=== PATIENT | female | born 1970 | race African-American/Black ===

== ENCOUNTER 2018-09-20 12:53 | Inpatient (IN) | payer OTHER ==
[~2018-09-20] VITALS: Ht 167.6 cm; Wt 59.0 kg
[2018-09-20 12:59] VITALS: BP 161/90
[2018-09-20] MEDS ORDERED: IBUPROFEN 200200 M1 PO (13:03)
[2018-09-20 13:45] LABS: CALCIUM 8.6 mg/dL (8.5-10.1); CREATININE 0.9 mg/dL (0.6-1.3); POTASSIUM 3.2 mmol/L (3.5-5.1)
[2018-09-20 13:49] LABS: ALBUMIN 3.8 g/dL (3.4-5.0); TOTAL BILIRUBIN 0.4 mg/dL (<0.1-1.0); TOTAL PROTEIN 7.6 g/dL (6.4-8.2)
[2018-09-20 13:57] LABS: MCH 13.5 pg (26.0-34.0); MCHC 25.7 g/dL (28.0-37.0); MCV 52.4 fL (80.0-100.0); MPV 9.1 fl. (7.2-11.1); NUCLEATED RBCS 0 /100WBC; PLATELET COUNT* 250 thou/uL (150-400); RBC 3.33 mil/uL (4.20-5.00); WBC 13.1 thou/uL (4.0-11.0)
[2018-09-20 14:09] LABS: HEMOGLOBIN 4.5 gm/dL (12.0-15.0)
[2018-09-20 14:10] LABS: HEMATOCRIT 17.4 % (37.0-47.0)
[2018-09-20 14:30] LABS: APTT 25.7 Seconds (25.0-31.3); INR 1.1; PROTIME 10.9 Seconds (9.20-11.50)
[2018-09-20 14:58] LABS: ABSOLUTE EOSINOPHILS 0.3 thou/uL (0.0-0.7); ABSOLUTE MONOCYTES 0.8 thou/uL (0.0-1.2); ABSOLUTE NEUTROPHILS 12.1 thou/uL (1.6-8.1); PLATELET ESTIMATE ADEQUATE
[2018-09-20 14:59] LABS: ANISOCYTOSIS 2+; HYPOCHROMASIA 3+; MICROCYTES 3+
[2018-09-20 16:13] VITALS: BP 123/66
[2018-09-20 16:22] VITALS: BP 141/70
[2018-09-20 20:00] VITALS: BP 130/60
[2018-09-21 00:25] VITALS: BP 144/64
[2018-09-21 04:00] VITALS: BP 130/61; BP 84/46
[2018-09-21 08:15] VITALS: BP 133/67
--- NOTE | 2018-09-21 10:02 | EKG ---
[place] [address] ELECTROCARDIOGRAM REPORT Name: FELTON FIELDS Room: [address] ADM IN ..#: [id number] Admission: 09/20/18 Attend Phys: Benjamín Peacock MD Discharge: Date of : 68 Report #: [id number] THIS REPORT FOR: //name// [facility] ED Test Date: 2018-09-20 Test Time: 14:41:52 Pat Name: FELTON FIELDS Department: Room: [facility] Gender: Clinical Systems Educator: Rehana CATHERINE : 1970 Requested By: Kylah Rodriguez Order Number: [id number] MD: Jad Stinson Measurements Intervals [place] Rate: 88 P: 73 IN: 157 QRS: 32 QRSD: 99 T: 34 QT: 392 QTc: 475 Interpretive Statements Sinus rhythm Borderline T abnormalities, anterior leads No previous ECG available for comparison Electronically Signed On 09-21-2018 10:02:25 CDT by Jad Stinson [email or web address] <ELECTRONICALLY SIGNED> By: Jad Stinson MD, [facility] 09/21/18 [facility] 1441 [id number] Jad Stinson MD, FACC /EPI
[2018-09-21 14:07] VITALS: BP 141/54; BP 141/78; BP 142/62; BP 145/63
[2018-09-21 17:48] VITALS: BP 131/69; BP 141/72; BP 141/77; BP 141/78; BP 144/77; BP 145/65
[2018-09-21 20:15] VITALS: BP 145/65
[2018-09-22] VITALS: BP 137/73
[2018-09-22 04:00] VITALS: BP 134/77
[2018-09-22 05:58] LABS: ALBUMIN 3.2 g/dL (3.4-5.0); CALCIUM 8.4 mg/dL (8.5-10.1); CREATININE 0.8 mg/dL (0.6-1.3); POTASSIUM 3.5 mmol/L (3.5-5.1); TOTAL BILIRUBIN 0.6 mg/dL (<0.1-1.0); TOTAL PROTEIN 6.7 g/dL (6.4-8.2)
--- NOTE | 2018-09-22 07:36 | CON ---
[address] [address] CONSULTATION Name: FELTON FIELDS Room: [address] ADM IN M.R.#: [id number] Admission: 09/20/18 Attend Phys: Benjamín Peacock MD Discharge: Date of : 68 Report #: [id number] THIS REPORT FOR: //name// CC: [facility] physician/PCP Benjamín Peacock DATE OF SERVICE: 09/21/2018 ATTENDING PHYSICIAN: Adan Yanez M.D. REASON FOR EVALUATION: Left elbow inflammatory process, likely deep component in addition to skin and soft tissue infection. HISTORY OF PRESENT ILLNESS: Chart reviewed, patient examined. This is a 47-year-old woman with not significant medical history, who was admitted through the Emergency Room with complaints of left upper extremity pain and swelling. She had onset short time prior to her being evaluated, did have associated chills, some nausea and raise suspicion of an insect bite. Evaluation including clinical exam showed marked inflammatory changes noted around the proximal forearm as well as distal arm is quite tender. Of note, electrolytes are unremarkable, normal coagulation; however, CBC showed a hemoglobin of 4.5, hematocrit of 17.4 with an MCV of 52.4. Iron level is low at 5 and a low ferritin level of 2. Was empirically started on vancomycin. She is not overtly toxic. Evaluation pending including a hemoglobin electrophoresis as well as iron replacement. On questioning, did admit to heavy menses. In the last several years, she has not had evaluation. Denies any particular exposure history, does have a cat. No recent travel. ALLERGIES: TO CODEINE. CURRENT MEDICATIONS: Include vancomycin, tramadol, acetaminophen, iron parenterally. PAST MEDICAL HISTORY: Otherwise, unremarkable. SOCIAL HISTORY: Nonsmoker. Occasional ethanol. FAMILY HISTORY: Noncontributory. REVIEW OF SYSTEMS: Denies any anorexia, no weight loss. Denies any significant pulmonary or gastrointestinal related complaints. PHYSICAL EXAMINATION: GENERAL: She is pleasant and alert, cooperative, mild distress secondary to the upper extremity pain, appears undernourished, somewhat of a chronically [place] [address] CONSULTATION Name: FELTON FIELDS Room: [address] IN [facility]#: [id number] Admission: 09/20/18 Attend Phys: Benjamín Peacock MD Discharge: Date of : 68 Report #: [id number] VITAL SIGNS: T-max of 99.4, more recently 98.4; pulse 87; respirations 12; blood pressure 133/67. SKIN: Warm, dry, no rashes. HEENT: Pale mucous membranes. NECK: Supple. LUNGS: Clear to auscultation. HEART: Regular. Somewhat bounding. No appreciated murmur. ABDOMEN: Soft, mildly distended. There are no peritoneal signs. GENITOURINARY: Deferred. RECTAL: Deferred. LABORATORY DATA: Sodium 140, potassium 3.2, chloride 107, bicarbonate 20, anion gap of 11, BUN and creatinine 6 and 0.9. LFTs unremarkable. Albumin of 3, total protein 7.6. Estimated GFR of 81. CBC: White count of 13.1, H and H 4.5 and 17.4, MCV of 52.4. She has no lymphocytes. Plain x-ray of the elbow showed no osseous abnormalities, soft tissue edema. MRI results are pending. ASSESSMENT AND PLAN: Inflammatory process involving the left elbow. We will continue empiric antimicrobial therapy and certainly, the evidence favors infectious etiology, whether there was a breech such as this may occur with arthropod bite, a secondary bacterial infection and fairly rapid onset. Does have underlying profound anemia. This is being worked up as well. We will order an HIV just to exclude that possibility. <ELECTRONICALLY SIGNED> By: Cristhian Gaxiola MD 09/22/18 0736 [id number] Gaxiola MD /nt
[2018-09-22 08:00] VITALS: BP 164/94
[2018-09-22 08:04] LABS: HYPOCHROMASIA 3+
[2018-09-22 08:05] LABS: MICROCYTES 3+
[2018-09-22 08:06] LABS: OVALOCYTES 2+; SCHISTOCYTES 2+; TEARDROPS 1+
[2018-09-22 08:07] LABS: ANISOCYTOSIS 2+; PLATELET ESTIMATE ADEQUATE
[2018-09-22 08:15] LABS: ABSOLUTE EOSINOPHILS 0.7 thou/uL (0.0-0.7); ABSOLUTE LYMPHOCYTES 1.1 thou/uL (0.8-5.3); ABSOLUTE MONOCYTES 0.2 thou/uL (0.0-1.2); ABSOLUTE NEUTROPHILS 14.3 thou/uL (1.6-8.1); HEMATOCRIT 24.4 % (37.0-47.0); HEMOGLOBIN 7.3 gm/dL (12.0-15.0); MCH 18.7 pg (26.0-34.0); MCHC 29.8 g/dL (28.0-37.0); MCV 62.8 fL (80.0-100.0); MPV 9.2 fl. (7.2-11.1); PLATELET COUNT* 191 thou/uL (150-400); RBC 3.88 mil/uL (4.20-5.00); RDW-CV 34.6 % (10.5-14.5); WBC 16.3 thou/uL (4.0-11.0)
[2018-09-22 12:00] VITALS: BP 122/69; BP 143/78
--- NOTE | 2018-09-22 13:11 | CON ---
[address] [address] CONSULTATION Name: FELTON FIELDS Room: [address] ADM IN M.R.#: [id number] Admission: 09/20/18 Attend Phys: Benjamín Peacock MD Discharge: Date of : 68 Report #: [id number] THIS REPORT FOR: //name// CC: [facility] physician/PCP Benjamín Peacock DICTATED BY: Gilberto Seay DO DATE OF SERVICE: 09/21/2018 CHIEF COMPLAINT: Left elbow pain and swelling. HISTORY OF PRESENT ILLNESS: The patient is a 47-year-old female who complains of 1 day history of left elbow pain and swelling. She is unsure how this started. She thought she may have been bit by a spider; however, there is no open wound. There is some bruising just above the posterior aspect of the elbow. She denies any trauma or recent illness. She states she currently has pain over the focal area of swelling posteriorly. She is able to range her elbow approximately 15 degrees to 75 degrees. She is limited secondary to the swelling and developed some discomfort beyond this point. She denies any numbness or tingling down to the hand. She denies any other acute musculoskeletal complaints. PAST MEDICAL HISTORY: Anemia. PAST SURGICAL HISTORY: Tubal ligation. FAMILY HISTORY: Noncontributory. SOCIAL HISTORY: Available on the medicine note. MEDICATIONS: See MAR. ALLERGIES: CODEINE. REVIEW OF SYSTEMS: A 12-point review of systems negative except for the above mentioned in HPI. PHYSICAL EXAMINATION: GENERAL: Alert and oriented, no acute distress. HEENT: Eyes: Extraocular motion intact. Ears are grossly normal. Mouth mucosa moist. NECK: Supple. CARDIOVASCULAR: Cap refill brisk. ABDOMEN: Soft. MUSCULOSKELETAL: Exam of the left elbow [place] [address] CONSULTATION Name: FELTON FIELDS Room: [address] IN [facility]#: [id number] Admission: 09/20/18 Attend Phys: Benjamín Peacock MD Discharge: Date of : 68 Report #: [id number] posterior aspect of the elbow and proximal part of the posterior forearm. There is mild tenderness to palpation in this area. There is, however, no warmth or erythema in this area. She has minimal pain with pronation and supination. She can range gently between 15 and 70 degrees without pain. She does have pain beyond that point. AIN, PIN, ulnar nerves are intact distally. Cap refill is brisk. Radial pulse +2/4. IMAGING: MRI was ordered demonstrates no obvious abscess or effusion. No septic arthritis present. There is enhancement in the subcutaneous tissues consistent with cellulitis. IMPRESSION: Left elbow pain and swelling. PLAN: At this time, MRI is reassuring that she does not have an abscess or septic arthritis that needs to be addressed surgically. She does have microcytic anemia that our Hematology is following and working out. In regard to her left elbow, we would recommend ice, elevation, compressive wrap and limited activity. There is no acute surgical indication. We will follow progress of her symptoms clinically while she is admitted. <ELECTRONICALLY SIGNED> By: Ash Montes DO 09/22/18 1311 [id number] Villasenor DO /nt
[2018-09-22 14:00] VITALS: BP 127/76
[2018-09-22 20:00] VITALS: BP 143/71
[2018-09-23] VITALS: BP 139/73
[2018-09-23 05:43] LABS: ABSOLUTE BASOPHILS 0.1 thou/uL (0.0-0.2); ABSOLUTE EOSINOPHILS 0.6 thou/uL (0.0-0.7); ABSOLUTE LYMPHOCYTES 0.4 thou/uL (0.8-5.3); ABSOLUTE MONOCYTES 1.8 thou/uL (0.0-1.2); BASOPHILS 0.4 %; EOSINOPHILS 4.5 %; HEMATOCRIT 25.5 % (37.0-47.0); HEMOGLOBIN 7.3 gm/dL (12.0-15.0); LYMPHOCYTES 2.7 %; MCH 18.3 pg (26.0-34.0); MCHC 28.5 g/dL (28.0-37.0); MPV 9.1 fl. (7.2-11.1); NUCLEATED RBCS 1 /100WBC; PLATELET COUNT* 192 thou/uL (150-400); POLYS 79.4 %; RBC 3.98 mil/uL (4.20-5.00); RDW-CV 35.5 % (10.5-14.5); WBC 13.8 thou/uL (4.0-11.0)
[2018-09-23 05:49] LABS: MCV 64.1 fL (80.0-100.0)
[2018-09-23 06:06] LABS: ALBUMIN 3.2 g/dL (3.4-5.0); CALCIUM 8.5 mg/dL (8.5-10.1); CREATININE 0.8 mg/dL (0.6-1.3); POTASSIUM 3.3 mmol/L (3.5-5.1); TOTAL BILIRUBIN 0.4 mg/dL (<0.1-1.0); TOTAL PROTEIN 6.3 g/dL (6.4-8.2)
[2018-09-23 07:55] VITALS: BP 146/70
[2018-09-23 16:07] VITALS: BP 136/72
[2018-09-23 20:30] VITALS: BP 141/83
[2018-09-24 08:20] VITALS: BP 133/79
[2018-09-24 11:22] VITALS: BP 133/79
[2018-09-24] MEDS ORDERED: MINOCIN50 MG PO (14:40)
--- NOTE | 2018-09-24 16:43 | CON ---
[address] [address] CONSULTATION Name: FELTON FIELDS Room: [address] IN M.R.#: [id number] Admission: 09/20/18 Attend Phys: Benjamín Peacock MD Discharge: 09/24/18 Date of : 68 Report #: [id number] THIS REPORT FOR: //name// CC: [facility] physician/PCP Benjamín Peacock DATE OF SERVICE: 09/20/2018 REASON FOR CONSULTATION: Iron deficiency anemia. HISTORY OF PRESENT ILLNESS: The patient is a very pleasant 47-year-old female with no significant prior medical problems. The patient has not seen a doctor for several years and has not had a blood work done for several years as well. The patient came to the Emergency Room after she noticed swelling in her left elbow this morning. The patient does not complain of any fatigue or tiredness or shortness of breath. She says that there has been no discharge from the insect bite, but she has had swelling and pain in the left elbow area from presumed insect bite since 5:00 in the morning. She did not observe any insect in the vicinity after she started having the signs and symptoms. The patient does not complain of any headaches, dizziness, nausea, vomiting, constipation, diarrhea, chest pain, palpitations, or other significant symptoms. Her hemoglobin and hematocrit in the Emergency Room, was found to be significantly decreased at 4.5 and 17.4 respectively with MCV of 52.4 and MCHC of 25.7. Platelet count was 250 and RDW was elevated at 33. WBC count was 13.1. Her ferritin level was 2 with iron saturation of 1% and elevated TIBC of 459 with decreased iron level of 5. The patient's complete metabolic profile showed some mild decrease in potassium of 3.2 with normal renal and hepatic functions. The patient was admitted to the hospital and Orthopedics have been consulted. PAST MEDICAL HISTORY: Denies any particular past medical history. PAST SURGICAL HISTORY: Not significant. PERSONAL HISTORY: The patient is a nonsmoker, drinks 3 alcoholic beverages a week and denies any illicit drug use. ALLERGIES: Seasonal allergies, but no known drug allergies. CURRENT MEDICATIONS: 1. Venofer 200 mg IV daily started today. 2. Electrolyte replacements as directed. 3. Zofran 4 [place] [address] CONSULTATION Name: FELTON FIELDS Room: [address]#: [id number] Admission: 09/20/18 Attend Phys: Benjamín Peacock MD Discharge: 09/24/18 Date of : 68 Report #: [id number] REVIEW OF SYSTEMS: A 13-point review of systems were obtained, which were negative for any findings of those discussed in HPI. PHYSICAL EXAMINATION: VITAL SIGNS: Temperature today was 37.3 degrees centigrade, pulse was 88 beats per minute, respiratory rate was 16 breaths a minute, pulse ox 100% on room air, blood pressure 141/70 mmHg. GENERAL: Awake, alert, oriented x 3, no apparent distress. HEENT: EOMI/PERRL. LYMPHATICS: No lymphadenopathy in the neck or supraclavicular areas. CHEST: Clear bilaterally with no added sounds. CARDIOVASCULAR: Regular rate and rhythm without any murmurs. ABDOMEN: Soft, bowel sounds positive. MUSCULOSKELETAL: No significant arthropathy. Gait normal. NEUROLOGIC: No evidence of any focal neurological deficit. INTEGUMENTARY: No evidence of rash, although skin changes. ASSESSMENT AND PLAN: The patient is a very pleasant 47-year-old female who has a history of coming to the Emergency Room today after presumed insect bite in the left elbow with left elbow swelling. The patient was found to have significantly decreased hemoglobin and hematocrit with hemoglobin of 4.5 along with microcytosis. Iron profile revealed significantly decreased iron saturation of 1% with ferritin level of 2 indicating severe iron deficiency. The patient did not give a history of any bleeding in the stool or urine, but does complain of menorrhagia for several years. The patient is asymptomatic, indicating that she has had decreased hemoglobin for a long period of time. She also does not give any family history of any thalassemia or sickle cell anemias. However, I will plan to check a hemoglobin electrophoresis study to rule out these possibilities. I will ask the hospitalist team to start replacing her iron IV. According to calculation, the patient has a deficit of approximately 3 grams of iron, which may require prolonged IV iron administration. I would also recommend Gastroenterology consultation for possibility of screening colonoscopy and possible EGD to rule out any evidence of GI blood loss over time. We will follow the patient while she is in house. Thank you for allowing us to participate in care of this pleasant patient. <ELECTRONICALLY SIGNED> By: Oscar Daniels MD 09/24/18 1643 1725 [id number] Jeanine Daniels MD /nt
== END 2018-09-24 16:00 | disposition home or self-care (01) | DRG 603 ==
LOC: M.ERS 12:53 → M.2W 15:09 → M.TBA-ER 15:09 → M.2W 16:20 → M.3W 09-23 08:07
PROVIDERS: Internal Medicine; Nurse Practitioner Family
PROC: 30233N1 Transfusion of Nonautologous Red Blood Cells into Peripheral Vein, Percutaneous Approach (ICD-10-PCS; principal; 2018-09-21)
DX: L03.114 Cellulitis of left upper limb (principal); D62 Acute posthemorrhagic anemia; R65.10 Systemic inflammatory response syndrome (SIRS) of non-infectious origin without acute organ dysfunction; T63.391A Toxic effect of venom of other spider, accidental (unintentional), initial encounter; D50.9 Iron deficiency anemia, unspecified; E87.6 Hypokalemia; D72.829 Elevated white blood cell count, unspecified; R21 Rash and other nonspecific skin eruption; N92.0 Excessive and frequent menstruation with regular cycle; D25.9 Leiomyoma of uterus, unspecified; Y92.89 Other specified places as the place of occurrence of the external cause; Z88.6 Allergy status to analgesic agent